=== PATIENT | female | born 1980 | race Caucasian/White ===

== ENCOUNTER → 2017-03-14 | Outpatient (CLI) | payer BC ==
--- NOTE | 2017-03-14 17:15 | Diagnostic Imaging Report ---
INDICATION: Menorrhagia. FINDINGS: The uterus measures 8.8 x 5.1 x 5.1 cm. The endometrial stripe is uniform measuring 7 mm. The right ovary measures 3.2 x 1.8 x 2.2 cm. There are multiple small follicular cysts present bilaterally. The left ovary measures 2.7 x 3.3 x 1.7 cm. There is a benign-appearing cyst measuring 1.3 cm. There is a small amount of free fluid in the cul-de-sac. IMPRESSION: 1. Multiple follicular cysts present throughout both ovaries with largest cyst on the left measuring 1.3 cm. 2. There is a trace of free fluid in the cul-de-sac. Dictated by: Dictated on workstation # [id number]
== END ==
LOC: RAD 13:02
PROVIDERS: ATTEND Obstetrics & Gynecology
DX: N83.01 Follicular cyst of right ovary (principal); N83.02 Follicular cyst of left ovary; N92.0 Excessive and frequent menstruation with regular cycle; N93.0 Postcoital and contact bleeding; N92.3 Ovulation bleeding
CPT/HCPCS: 76830; 76856

== ENCOUNTER → 2021-10-24 | Outpatient (CLI) | payer OTHER ==
--- NOTE | 2021-10-24 13:33 | Diagnostic Imaging Report ---
INDICATION: Palpable lump left breast. BB marker is placed at the area of palpable abnormality in the lower inner left breast. CC, MLO and ML diagnostic mammography was performed. Both breasts are heterogeneously dense, limiting sensitivity of mammography. There is a circumscribed nodule in the lower outer left breast approximately 4 cm from the nipple. No underlying abnormality at the area of palpable abnormality in left breast is seen. There is also circumscribed nodule in the upper outer right breast approximately 5 cm from the nipple. These likely represent cysts. No suspicious consultations are seen. Axillae are unremarkable. IMPRESSION: BI-RADS 0 1. Circumscribed densities bilaterally, likely cysts. Evaluation of these areas with ultrasound is recommended. In addition, ultrasound evaluation of the lower inner left breast is recommended at the area of palpable abnormality. This will be performed today. ACR BI-RADS Category 0: Incomplete. (Needs additional imaging evaluation). Result letter will be mailed to the patient. Note: At least 10% of breast cancer is not imaged by mammography. Dictated by: Dictated on workstation # [id number]
--- NOTE | 2021-10-24 15:32 | Diagnostic Imaging Report ---
INDICATION: Left breast lump. Correlation is made with diagnostic mammogram performed earlier the same day. Right breast: There is a simple appearing cyst at 8 o'clock location of the right breast 4-5 cm from the nipple measuring 16 mm x 7 mm x 14 mm. 2nd cyst is located at the 9 o'clock location, 3 cm from the nipple measuring 10 mm x 8 mm x 9 mm. Smaller cysts 11 o'clock location right breast, 3-4 cm from the nipple are noted measuring 10 mm x 4 mm x 9 mm. No solid masses are detected. Left breast: Sonographic interrogation of the area of lump was performed. There is a hypoechoic mass corresponding to the palpable abnormality measuring 2.6 x 2.2 x 2.8 cm. No internal vascularity is seen. There is posterior acoustic enhancement and features are suggestive of a probable complex cyst. The possibility of a solid lesion such as a fibroadenoma cannot be entirely excluded. More simple appearing cyst adjacent to this is noted at the 7 o'clock location 3 cm from the nipple measuring 2.2 x 1.7 x 1.2 cm. There is also a cyst at 5 o'clock location, 3 cm from the nipple measuring 1.5 x 1.0 x 1.6 cm. IMPRESSION: 1. Bilateral breast cysts. 2. Indeterminate hypoechoic nodule left breast 7:00 location, 3 simmers from the nipple corresponding to the patient's palpable abnormality. This may represent either complex cyst versus a solid lesion such as fibroadenoma. After discussion with the patient, the patient elected to undergo tissue sampling. This would be amenable to ultrasound-guided attempted aspiration and potential core biopsy. These likely account for the mammographic densities. BI-RADS Category 4 ACR BI-RADS Category 4: Suspicious abnormality. Result letter will be mailed to the patient. Note: At least 10% of breast cancer is not imaged by mammography. Dictated by: Dictated on workstation # [id number]
--- NOTE | 2021-10-26 10:31 | Diagnostic Imaging Report ---
INDICATION: Left breast mass. PROCEDURE: The patient presents for attempted ultrasound-guided aspiration versus biopsy. The patient was brought to the procedure and placed on the table in the supine position. Ultrasound imaging of the left breast was performed to evaluate appropriate entry site. Left breast was then prepped and draped in the usual sterile fashion. A small amount of 1% lidocaine was utilized for local anesthesia. An 18-gauge and 20-gauge needles were passed into the hypoechoic mass at the 7:00 location of the left breast, 3 cm from the nipple and aspiration was attempted. No fluid could be returned. Therefore, 3 core biopsies were obtained of the lesion utilizing the 14-gauge Achieve needle. A marker clip was then deployed. Hemostasis was obtained using manual compression. Patient tolerated the procedure well and left the department in stable condition. IMPRESSION: Successful ultrasound-guided core biopsy of the hypoechoic mass at the 7:00 location of the left breast, 3 cm from the nipple. Pathology results are currently pending. Dictated by: Dictated on workstation # [id number]
== END ==
LOC: RAD 12:45
PROVIDERS: ATTEND Obstetrics & Gynecology
DX: N60.02 Solitary cyst of left breast (principal); N60.01 Solitary cyst of right breast; N63.23 Unspecified lump in the left breast, lower outer quadrant
CPT/HCPCS: 76642; 77066; G0279; 77062

== ENCOUNTER → 2021-10-26 | Outpatient (CLI) | payer OTHER ==
[~2021-10-26] VITALS: Ht 155 cm; Wt 75.0 kg
[~2021-10-26] MED LIST: LIDOCAINE 1% INJ 20 ML VIAL INJ ONE; LIDOCAINE 1% INJ 20 ML VIAL ONE
[2021-10-26 09:04] VITALS: BP 112/71
== END ==
LOC: RAD 08:15
PROVIDERS: ATTEND Obstetrics & Gynecology
DX: R92.8 Other abnormal and inconclusive findings on diagnostic imaging of breast (principal)

== ENCOUNTER 2021-11-16 05:37 | Outpatient (CLI) | payer OTHER ==
[~2021-11-16] VITALS: Ht 165.1 cm; Wt 76.4 kg
[2021-11-16] MEDS ORDERED: CETI10TA49 PO (15:20)
== END 2021-11-16 15:26 | disposition home or self-care (01) ==
LOC: PREOP 05:37
PROVIDERS: ATTEND Surgery
DX: Z01.818 Encounter for other preprocedural examination (principal)

== ENCOUNTER 2021-11-21 09:10 | Day surgery (SDC) | payer OTHER ==
[2021-11-21] VITALS (11 sets, daily range): BP systolic 115–144; BP diastolic 60–91
[~2021-11-21] VITALS: Ht 165.1 cm; Wt 76.4 kg
[~2021-11-21 09:10] MED LIST changes: +CETI10TA49 PO; -LIDOCAINE 1% INJ 20 ML VIAL INJ ONE; -LIDOCAINE 1% INJ 20 ML VIAL ONE
--- NOTE | 2021-11-21 09:28 | Progress Note-Pre Operative ---
Pre-Operative Progress Note H&P Reviewed The H&P was reviewed, patient examined and no changes noted. Time Seen by Provider: 09:24 Date H&P Reviewed: Nov 21, 2021 Time H&P Reviewed: 09:24 Pre-Operative Diagnosis: Left breast lump, site marked SUHAS DENT DO Nov 21, 2021 09:28
[2021-11-21] MEDS ORDERED: LACTATED RINGERS 1,000 ML IV PRN (09:30)
[2021-11-21] MEDS ORDERED: CLINDAMYCIN 600 MG/50 ML IVPB 50 ML IV ONE (09:30)
[2021-11-21] MEDS ORDERED: LIDOCAINE/EPI 1%-1:200,000 (XYLOCAINE) 30 ML VIAL ONE (10:27)
[2021-11-21] MEDS ORDERED: ONDANSETRON 4 MG/2 ML (SDV) Z0FRAN ONE (11:11)
[2021-11-21] MEDS ORDERED: proPOfol 200 MG/20 ML (DIPRIVAN) VIAL IV ONE (11:11)
[2021-11-21] MEDS ORDERED: LIDOCAINE PF 2% 5 ML (XYLOCAINE) VIAL ONE (11:11)
[2021-11-21] MEDS ORDERED: fentaNYL INJ 100 MCG/2 ML AMP ONE (11:12)
[2021-11-21] MEDS ORDERED: MIDAZOLAM 2 MG/2 ML (VERSED) VIAL ONE (11:12)
--- NOTE | 2021-11-21 11:49 | Progress Note-Post Operative ---
Post-Operative Progess Note Surgeon (s)/Private Investigator (s) Surgeon SUHAS DENT DO Private Investigator: MAMADOU Edgar Pre-Operative Diagnosis Left breast lump, site marked Post-Operative Diagnosis same pending path Procedure & Operative Findings Date of Procedure 11/21/21 Procedure Performed/Findings Exc Left breast lump and biopsy site Anesthesia Type LMA Estimated Blood Loss Estimated blood loss (mL): less than 10ml Specimens/Packing Specimens Removed left breast tissue and skin, marked at 12 o'clock with short suture, lateral at 3 o'clock with long suture and base with 2 sutures SUHAS DENT DO Nov 21, 2021 11:49
[2021-11-21] MEDS ORDERED: ACHD5005 PO (11:50)
--- NOTE | 2021-11-21 11:52 | Discharge Inst-Surgical ---
Discharge Inst-Surgical Depart Medication/Instructions New, Converted or Re-Newed RX: Transmitted to Pharmacy Patient Instructions Follow up Appt: Make appointment for 1 week. [phone] Instructions: No lifting greater than 20 pounds. No strenuous activity. May shower in 24 hours, no tub bath or soaking. Use incentive spirometer at home as directed. No Smoking Skin/Wound Care: May remove bandages in am. You need to leave the Dermabond on incision it will fall off on it's own. Symptoms to Report: Appetite Changes, Extremity Discoloration, Numbness/Tingling, Swelling Increased, Bleeding Excessive, Eyesight Changes, Pain Increased, Urine Color Change, Constipation(Persistent), Fever over 101 degree F, Pain/Pressure in chest, Urinating Difficulty, Cough Up/Vomit Blood, Heart Beat Irreg/Pounding, Pain/Pressure in jaw, Cramps in feet or legs, Lightheadedness, Pain/Pressure in shoulder, Diarrhea(Persistent), Memory Changes Suddenly, Questions/Concerns, Weight gain consecutive days, Dizziness/Fainting, Nausea/Vomiting, Shortness of Breath, Weight gain over 2 pounds If questions or concerns contact your physician Or seek help at emergency department. Activity Activity as Tolerated: Yes Activity Instructions: Avoid Stress to Incision Driving Instructions: No Driving/Refer to Dr. Woo Discharge Diet: No Restrictions Diet After 24 Hours: Clear Liquid if Nauseous If Any Problems/Questions/Issu: Contact Your Physician, Go to Emergency Room Skin/Wound Care Infection Signs and Symptoms: Increased Redness, Foul Odor of Wound, Increased Drainage, Skin Itchy or Has a Rash, Increased Swelling, Temperature Above 101 F Wound Care Comment: Wear tight sports bra for next 7days, all 24 hours except to shower Bathing Instructions: Shower Stitches/[place]/Dermabond Dis: A[place]ond SUHAS DENT DO Nov 21, 2021 11:52
[2021-11-21] MEDS ORDERED: SEVOFLURANE (ULTANE) 15 ML INHAL SOLN ONE (11:59)
[2021-11-21] MEDS ORDERED: morphine INJ 10 MG/ML 1ML (SYR OR VIAL) IVP ONE (12:15)
[2021-11-21] MEDS ORDERED: MEPERIDINE (DEMEROL) INJ 50 MG/ML IVP ONE (12:15)
[2021-11-21] MEDS ORDERED: ONDANSETRON 4 MG/2 ML (SDV) Z0FRAN IVP PRN (12:15)
--- NOTE | 2021-11-21 14:35 | Anesthesia-General Post-Op ---
General Patient Condition Mental Status/LOC: Same as Preop Cardiovascular: Satisfactory Nausea/Vomiting: Absent Respiratory: Satisfactory Pain: Controlled Complications: Absent Post Op Complications Complications None Follow Up Care/Instructions Patient Instructions None needed. Anesthesia/Patient Condition Patient Condition Patient is doing well, no complaints, stable vital signs, no apparent adverse anesthesia problems. No complications reported per nursing. KARELY NORIEGA CRNA Nov 21, 2021 14:35
--- NOTE | 2021-11-21 18:41 | OPERATIVE REPORT ---
DATE OF SERVICE: 11/21/2021 PREOPERATIVE DIAGNOSIS: Left breast mass. POSTOPERATIVE DIAGNOSIS: Left breast mass, pending pathology. PROCEDURE: Excision of left breast mass. SURGEON: Dominick Dent DO MANAGER PROCUREMENT: BEBETO Koo. ANESTHESIA: LMA. SPECIMEN: Left breast mass. BLOOD LOSS: Scant. FLUIDS: Per anesthesia. POSTOPERATIVE CONDITION: Stable. INDICATION FOR PROCEDURE: The patient is a 41-year-old female who has a left breast mass that had caused some dimpling and had a biopsy performed, which showed some atypical ductal hyperplasia and she needed to get the entire thing removed. FINDINGS: The patient had a portion of the skin where the biopsy was done and the breast mass removed, it was a lower inner quadrant left breast mass. PROCEDURE NOTE: After informed consent was obtained, the patient was brought to the operating room, placed on the operating table in supine position. She was sterilely prepped and draped in normal fashion. Local lidocaine was used to infiltrate around the previous biopsy site as well as the left lower quadrant. I then made an elliptical incision around the previous biopsy site along approximately 7 or 8 o'clock line with a #15 blade, carried down through the skin into subcutaneous tissue, then deepened down to subcutaneous tissue with Bovie electrocautery, creating flaps superiorly and inferiorly and then going around this mass and removing this area completely. The patient did have some fibrocystic breast tissue, but I believe we got the mass that was of concern. We marked it superiorly at the 12 o'clock position with a short stitch, laterally at the 3 o'clock position with a long stitch and at the base with 2 stitches. This was passed off table and sent to pathology. Copiously irrigated the area with normal saline. Hemostasis was obtained using Bovie electrocautery, then elected to close the incision, closing the deep tissue with 3-0 Vicryl, 2 interrupted sutures, then closed the skin with 4-0 undyed Monocryl in a running subcuticular fashion. Area was cleaned and dried. Dermabond placed as well as pressure dressing. The patient tolerated the procedure and transferred to recovery room in stable condition. Sponge, instrument and needle count correct at the end of the case. Job ID: [id number] DocumentID: [id number] Dictated Date: 11/21/2021 14:56:07 Manager Procurement Date: 11/21/2021 18:39:14 Dictated By: DOMINICK DENT DO
== END 2021-11-21 14:16 | disposition home or self-care (01) ==
LOC: SDC 09:10
PROVIDERS: ATTEND Surgery
DX: C50.912 Malignant neoplasm of unspecified site of left female breast (principal)
CPT/HCPCS: 84703; 87081

== ENCOUNTER → 2021-12-10 | Outpatient (RCR) | payer OTHER ==
[~2021-12-10] MED LIST changes: +ACHD5005 PO
== END | disposition home or self-care (01) ==
LOC: ONC 12-03 11:34
PROVIDERS: ATTEND Internal Medicine
DX: D05.12 Intraductal carcinoma in situ of left breast (principal)
CPT/HCPCS: 99204; 99214

== ENCOUNTER 2021-12-20 12:49 | Outpatient (RCR) | payer OTHER | END 2022-01-10 | disposition home or self-care (01) | LOC: ONC 12:49 | PROVIDERS: ATTEND Internal Medicine | DX: Z51.0 Encounter for antineoplastic radiation therapy (principal); D05.12 Intraductal carcinoma in situ of left breast; Z78.0 Asymptomatic menopausal state | CPT/HCPCS: 77290; 77295; 77300; 77334 ==